=== PATIENT | female | born 1940 | race Caucasian/White ===

== ENCOUNTER 2017-05-04 15:55 | Observation (INO) | payer OTHER ==
[2017-05-04 16:04] VITALS: BMI 25.2
[2017-05-04 16:36] LABS: URINE APPEARANCE CLOUDY; URINE BILIRUBIN NEGATIVE (NEGATIVE); URINE BLOOD NEGATIVE (NEGATIVE); URINE COLOR AMBER; URINE GLUCOSE (UA) NEGATIVE (NEGATIVE); URINE KETONE TRACE (NEGATIVE); URINE NITRITE NEGATIVE (NEGATIVE); URINE UROBILINOGEN NEGATIVE E.U./dl (0.2-1.0)
[2017-05-04 16:37] LABS: URINE LEUK ESTERASE TRACE (NEGATIVE); URINE PROTEIN 2+ (NEGATIVE)
[2017-05-04 16:38] LABS: URINE BACTERIA RARE /hpf (NONE SEEN); URINE HYALINE CAST 11 /lpf; URINE MUCUS MANY; URINE RBC 5 /hpf (0-3); URINE WBC 15 /hpf (3-5)
[2017-05-04] MEDS ORDERED: ALBUTEROL SO4 2.5/IPRATROPIUM 0.5 INH SOL 3 ML VIAL.NEB. NEB ONE ×2 (17:48→18:38)
[2017-05-04] MEDS ORDERED: ACETAMINOPHEN 325 MG TABLET (FP) PO ONE (17:54)
[2017-05-04] MEDS ORDERED: SODIUM CHLORIDE 0.9% 1000 ML INFUS.BAG IV ONE (17:54)
[2017-05-04] MEDS ORDERED: ONDANSETRON 4 MG/2 ML VIAL IVPUSH ONE (17:55)
[2017-05-04 18:36] LABS: MCH 27.3 pg (25.7-33.7); MCHC 31.7 g/dl (32.0-36.0); MEAN CELL VOLUME 86.1 fl (80-96); MEAN PLT VOLUME 8.1 fl (7.5-11.1); PLATELET COUNT 275 K/MM3 (134-434); RDW 14.4 % (11.6-15.6); WHITE BLOOD COUNT 3.2 K/mm3 (4.0-10.0)
[2017-05-04] MEDS ORDERED: ACETAMINOPHEN 325 MG TABLET (FP) ONE (18:38)
[2017-05-04] MEDS ORDERED: ONDANSETRON 4 MG/2 ML VIAL ONE (18:39)
[2017-05-04 18:57] LABS: ALBUMIN 4.6 g/dl (3.4-5.0); BILIRUBIN,TOTAL 0.3 mg/dL (0.2-1.0); COCKROFT - GAULT 23.2475; CREATININE 1.9 mg/dL (0.55-1.02); TOT PROT 8.8 g/dl (6.4-8.2)
[2017-05-04 19:21] LABS: PLATELET ESTIMATE ADEQUATE (NORMAL)
[2017-05-04] MEDS ORDERED: LEVOFLOXACIN 500 MG IVPB 100 ML IVPB ONE ×2 (19:31→19:50)
--- NOTE | 2017-05-04 19:40 | PDOC ---
History of Present Illness - General History Source: Patient Exam Limitations: No Limitations - History of Present Illness Initial Comments: 05/04/17 19:40 The patient is a 76 year old female, with a significant past medical history of , who presents to the emergency department complaining of generalized weakness, nausea, vomiting, and diarrhea for approximately 4 days. The patient reports she experienced one emetic episode on Saturday, but has been experiencing approximately 2 episodes of diarrhea daily since the onset of her symptoms. Patient admits she has not been eating due to n/v/d. Today she has only consumed fluids. She reports a subjective fever and chills. She reports a cough productive of white and yellow sputum. Patient reports bilateral flank pain with coughing. She denies any dysuria, hematuria, frequency, or urgency. She denies any chest pain, shortness of breath, diaphoresis, or palpitations. She denies any recent travel or sick contacts. Allergies: Penicillins Past Surgical History: None reported Social History: Non smoker. No ETOH or drug use <Percy Barrow - Last Filed: 05/04/17 19:40> <Mojgan Almanzar - Last Filed: 05/04/17 20:27> - General Chief Complaint: Weakness Stated Complaint: FEVER, VOMITING Time Seen by Provider: 05/04/17 19:29 Past History <Percy Barrow - Last Filed: 05/04/17 19:40> - Past Medical History GI Disorders: Yes (GERD) Other medical history: arthritis - Surgical History Cholecystectomy: Yes - Psycho/Social/Smoking Cessation Hx Suicidal Ideation: No Smoking History: Never smoked <Mojgan Almanzar - Last Filed: 05/04/17 20:27> - Past Medical History Allergies/Adverse Reactions: Allergies Allergy/AdvReac Type Severity Reaction Status Date / Time Penicillins Allergy Verified 05/04/17 16:01 Home Medications: Ambulatory Orders Amlodipine Besylate [Norvasc -] 2.5 mg PO DAILY 05/04/17 Aspirin [ASA -] 81 mg PO DAILY 05/04/17 Cholecalciferol (Vitamin D3) [Vitamin D3 -] 1,000 unit PO DAILY 05/04/17 Pantoprazole Sodium [Protonix -] 20 mg PO DAILY 05/04/17 Valacyclovir HCl [Valtrex -] 1,000 mg PO BID 05/04/17 Review of Systems - Review of Systems Able to Perform ROS?: Yes Comments:: 05/04/17 19:41 GENERAL/CONSTITUTIONAL: Yes: +fever, +chills, +weakness. HEAD, EYES, EARS, NOSE AND THROAT: No change in vision. No ear pain or discharge. No sore throat. CARDIOVASCULAR: No chest pain or shortness of breath. RESPIRATORY: Yes: +cough productive of white/yellow sputum. No wheezing or hemoptysis. GASTROINTESTINAL: Yes: +nausea, vomiting, diarrhea. No constipation. GENITOURINARY: Yes: +bilateral flank pain. No dysuria, frequency, or change in urination. MUSCULOSKELETAL: Yes: +back pain. No joint or muscle swelling or pain. No neck pain. SKIN: No rash NEUROLOGIC: No headache, vertigo, loss of consciousness, or change in strength/ sensation. ENDOCRINE: Yes: Decreased appetite. No increased thirst. No abnormal weight change. HEMATOLOGIC/LYMPHATIC: No anemia, easy bleeding, or history of blood clots. ALLERGIC/IMMUNOLOGIC: No hives or skin allergy. All Other Systems: Reviewed and Negative <Percy Barrow - Last Filed: 05/04/17 19:40> *Physical Exam - Vital Signs Last Vital Signs Temp Pulse Resp BP Pulse Ox 98.1 F 85 18 131/64 100 05/04/17 16:01 05/04/17 16:01 05/04/17 16:01 05/04/17 16:01 05/04/17 16:01 - Physical Exam Comments: 05/04/17 19:41 GENERAL: Awake, alert, and fully oriented, in no acute distress HEAD: No signs of trauma EYES: PERRLA, EOMI, sclera anicteric, conjunctiva clear ENT: Auricles normal inspection, hearing grossly normal, nares patent. Moist mucosa NECK: Normal ROM, supple, no lymphadenopathy, JVD, or masses LUNGS: Breath sounds equal, clear to auscultation bilaterally. No wheezes, and no crackles HEART: Regular rate and rhythm, normal S1 and S2, no murmurs, rubs or gallops ABDOMEN: Soft, nontender, normoactive bowel sounds. No guarding, no rebound. No masses MUSCULOSKELETAL: Bilateral CVA tenderness. EXTREMITIES: Normal range of motion, no edema. No clubbing or cyanosis. No cords, erythema, or tenderness. DP/PT pulses 2+ and symmetric. NEUROLOGICAL: Moves all extremities. Normal speech, normal gait SKIN: Warm, Dry, normal turgor, no rashes or lesions noted. <Percy Barrow - Last Filed: 05/04/17 19:40> - Vital Signs Last Vital Signs Temp Pulse Resp BP Pulse Ox 98.1 F 85 18 131/64 100 05/04/17 16:01 05/04/17 16:01 05/04/17 16:01 05/04/17 16:01 05/04/17 16:01 <Mojgan Almanzar - Last Filed: 05/04/17 20:27> ED Treatment Course - LABORATORY CBC & Chemistry Diagram: 05/04/17 18:27 05/04/17 18:27 - ADDITIONAL ORDERS Additional order review: Laboratory Results 05/04/17 05/04/17 05/04/17 18:27 18:27 16:25 Sodium 137 Potassium 4.2 Chloride 103 Carbon Dioxide 22 Anion Gap 12 BUN 39 H Creatinine 1.9 H Creat Clearance w eGFR 25.84 Random Glucose 88 Lactic Acid 1.2 Calcium 10.0 Total Bilirubin 0.3 AST 51 H ALT 39 Alkaline Phosphatase 108 Total Protein 8.8 H Albumin 4.6 Urine Color Wendie Urine Appearance Cloudy Urine pH 5.0 Urine Protein 2+ H Urine Glucose (UA) Negative Urine Ketones Trace H Urine Blood Negative Urine Nitrite Negative Urine Bilirubin Negative Urine Urobilinogen Negative Ur Leukocyte Esterase Trace H Urine RBC 5 Urine WBC 15 Ur Epithelial Cells Rare Urine Bacteria Rare Hyaline Casts 11 Urine Mucus Many 05/04/17 18:27 RBC 5.19 MCV 86.1 MCHC 31.7 L RDW 14.4 MPV 8.1 Neutrophils % 34.0 L Lymphocytes % 41.0 H Monocytes % 22.0 H Eosinophils % 3.0 - Medications Given in the ED: ED Medications Discontinued Medications Generic Name Dose Route Start Last Admin Trade Name Freq PRN Reason Stop Dose Admin Acetaminophen 650 mg 05/04/17 17:54 05/04/17 18:46 Tylenol - PO 05/04/17 17:55 650 mg ONCE ONE Administration Albuterol/Ipratropium 1 amp 05/04/17 17:48 05/04/17 18:46 Duoneb - NEB 05/04/17 17:49 1 amp ONCE ONE Administration Ondansetron HCl 4 mg 05/04/17 17:55 05/04/17 18:46 Zofran Injection IVPUSH 05/04/17 17:56 4 mg ONCE ONE Administration Sodium Chloride 1,000 ml 05/04/17 17:54 05/04/17 18:25 Normal Saline - IV 05/04/17 17:55 1,000 ml ONCE ONE Administration <Percy Barrow - Last Filed: 05/04/17 19:40> - LABORATORY CBC & Chemistry Diagram: 05/04/17 18:27 05/04/17 18:27 - ADDITIONAL ORDERS Additional order review: Laboratory Results 05/04/17 05/04/17 05/04/17 18:27 18:27 16:25 Sodium 137 Potassium 4.2 Chloride 103 Carbon Dioxide 22 Anion Gap 12 BUN 39 H Creatinine 1.9 H Creat Clearance w eGFR 25.84 Random Glucose 88 Lactic Acid 1.2 Calcium 10.0 Total Bilirubin 0.3 AST 51 H ALT 39 Alkaline Phosphatase 108 Total Protein 8.8 H Albumin 4.6 Urine Color Wendie Urine Appearance Cloudy Urine pH 5.0 Urine Protein 2+ H Urine Glucose (UA) Negative Urine Ketones Trace H Urine Blood Negative Urine Nitrite Negative Urine Bilirubin Negative Urine Urobilinogen Negative Ur Leukocyte Esterase Trace H Urine RBC 5 Urine WBC 15 Ur Epithelial Cells Rare Urine Bacteria Rare Hyaline Casts 11 Urine Mucus Many 05/04/17 18:27 RBC 5.19 MCV 86.1 MCHC 31.7 L RDW 14.4 MPV 8.1 Neutrophils % 34.0 L Lymphocytes % 41.0 H Monocytes % 22.0 H Eosinophils % 3.0 - RADIOLOGY Radiology Studies Ordered: Category Date Time Status CHEST PA & LAT [RAD] Stat Radiology 05/04/17 17:48 Ordered - Medications Given in the ED: ED Medications Discontinued Medications Generic Name Dose Route Start Last Admin Trade Name Freq PRN Reason Stop Dose Admin Acetaminophen 650 mg 05/04/17 17:54 05/04/17 18:46 Tylenol - PO 05/04/17 17:55 650 mg ONCE ONE Administration Albuterol/Ipratropium 1 amp 05/04/17 17:48 05/04/17 18:46 Duoneb - NEB 05/04/17 17:49 1 amp ONCE ONE Administration Ondansetron HCl 4 mg 05/04/17 17:55 05/04/17 18:46 Zofran Injection IVPUSH 05/04/17 17:56 4 mg ONCE ONE Administration Sodium Chloride 1,000 ml 05/04/17 17:54 05/04/17 18:25 Normal Saline - IV 05/04/17 17:55 1,000 ml ONCE ONE Administration <Mojgan Almanzar - Last Filed: 05/04/17 20:27> Medical Decision Making - Medical Decision Making 05/04/17 19:37 76 yo F with h/o HTN here wtih c/o n/v cough and congestion. pt states cough and body aches began 5 days ago. did have n/v at that time. last emesis was few days ago. now having loose watery stools, subjective fever and chills. cough productive of white phlegm initially, now yellow. also c/o bilat flank pain. no recent travel. no sick contacts. no mod factors. on exam awwake, alert, lungs clear bilaterally, decr at bases. heart RRR no mr/ g. abd soft NT bilat CVA ttp. ext wwp skin warm and dry. plan : differential pna, bronchitis, flu, dehydration plan labs duoneb, cxr ua cultures. flu swab. reassess. pt pcp not affiliate. <Mojgan Almanzar - Last Filed: 05/04/17 20:27> *DC/Admit/Observation/Transfer - Attestations Scribe Attestion: 05/04/17 19:41 Documentation prepared by Percy Barrow, acting as medical review specialist for Mojgan Almanzar MD <Percy Barrow - Last Filed: 05/04/17 19:40> - Discharge Dispostion Admit: Yes <Mojgan Almanzar - Last Filed: 05/04/17 20:27> Diagnosis at time of Disposition: Urinary tract infection, Bronchitis - Referrals Referrals: STAFF,NOT ON [Primary Care Provider] -
--- NOTE | 2017-05-04 20:34 | PN ---
<Chaz Reyes - Last Filed: 05/04/17 20:34> Teaching Attending Note Name of Resident: Donya Garcia ATTENDING PHYSICIAN STATEMENT I saw and evaluated the patient. I reviewed the resident's note and discussed the case with the resident. I agree with the resident's findings and plan as documented. SUBJECTIVE: OBJECTIVE: ASSESSMENT AND PLAN: <Martin Roberto - Last Filed: 05/04/17 22:27> Teaching Attending Note ATTENDING PHYSICIAN STATEMENT I saw and evaluated the patient. I reviewed the resident's note and discussed the case with the resident. I agree with the resident's findings and plan as documented. SUBJECTIVE: 76 year old female, with a significant past medical history of Hypertension, GERD, arthritis and renal stones, with a surgical history of cholecystectomy and , who presents to the ED with generalized weakness, nausea, vomiting, diarrhea, urinary frequency, fever, chills, bilateral flank pain and cough for the past 4 days. She describes her cough as productive of a white/ yellow sputum. She notes that her cough does cause her to have some mild shortness of breath. She also notes that she has been having nasal congestion associated. She reports that she had 1 episode of vomit and 8 episodes of diarrhea during this time frame. She denies any rectal bleeding. She notes that her fever is subjective in nature. She denies any sick contacts or recent travel. She denies any history of incontinence or UTIs. She denies dysuria, urgency or hematuria. She denies chest pain, headache or dizziness. OBJECTIVE: GENERAL: Awake, alert, and fully oriented, in no acute distress HEENT: Atraumatic. PERRLA, EOMI. No JVD. (+) Oral thrush. No sinus pain. LUNGS: No distress, speaks full sentences, clear to auscultation bilaterally HEART: Regular rate and rhythm, normal S1 and S2, no murmurs, rubs or gallops, peripheral pulses normal and equal bilaterally. ABDOMEN: Soft, nontender, normoactive bowel sounds. No guarding, no rebound. No masses. No CVA tenderness. EXTREMITIES: Normal inspection, Normal range of motion, no edema. No clubbing or cyanosis. NEUROLOGICAL: Cranial nerves II through XII grossly intact. Normal speech, no focal sensorimotor deficits SKIN: Warm, Dry, normal turgor, no rashes or lesions noted. CBCD WBC 3.2 K/mm3 (4.0-10.0) L 05/04/17 18: RBC 5.19 M/mm3 (3.60-5.2) 05/04/17 18:27 Hgb 14.1 GM/dL (10.7-15.3) 05/04/17 18:27 Hct 44.7 % (32.4-45.2) 05/04/17 18: MCV 86.1 fl (80-96) 05/04/17 18: MCHC 31.7 g/dl (32.0-36.0) L 05/04/17 18: RDW 14.4 % (11.6-15.6) 05/04/17 18: Plt Count 275 K/MM3 (134-434) 05/04/17 18: MPV 8.1 fl (7.5-11.1) 05/04/17 18:27 CMP Sodium 137 mmol/L (136-145) 05/04/17 18:27 Potassium 4.2 mmol/L (3.5-5.1) 05/04/17 18: Chloride 103 mmol/L (98-107) 05/04/17 18: Carbon Dioxide 22 mmol/L (21-32) 05/04/17 18:27 Anion Gap 12 (8-16) 05/04/17 18:27 BUN 39 mg/dL (7-18) H 05/04/17 18:27 Creatinine 1.9 mg/dL (0.55-1.02) H 05/04/17 18:27 Creat Clearance w eGFR 25.84 (>60) 05/04/17 18:27 Calcium 10.0 mg/dL (8.5-10.1) 05/04/17 18:27 Total Bilirubin 0.3 mg/dL (0.2-1.0) 05/04/17 18:27 AST 51 U/L (15-37) H 05/04/17 18:27 ALT 39 U/L (12-78) 05/04/17 18:27 Alkaline Phosphatase 108 U/L (45-117) 05/04/17 18:27 Total Protein 8.8 g/dl (6.4-8.2) H 05/04/17 18:27 Albumin 4.6 g/dl (3.4-5.0) 05/04/17 18:27 ASSESSMENT AND PLAN 1. Likely viral URI causing cough, nasal congestion, diarrhea, nausea and vomiting. No evidence of pneumonia on chest x-ray. - Flu swab. - Cough syrup PRN. - Tylenol PRN if fevers. - Zofran PRN if nausea or vomiting. - No antibiotics at this time. 2. Mild dehydration, secondary to vomiting and diarrhea. - IVF hydration. 3. KARI vs CKD, no baseline kidney function test available. - Urine creatine - Renal sonogram - Avoid nephrotoxic medications. - Trend kidney function tests. - Is and Os and daily weights. 4. Oral thrush and leukopenia - Rule out HIV. - Nystantin swish and spit. 5. Diet - Normal diet 6. DVT prophylaxes - Low risk - SCDs Documentation prepared by Martin Roberto, acting as medical review coordinator for Chaz Reyes MD.
[2017-05-04] MEDS ORDERED: ONDANSETRON 4 MG/2 ML VIAL IVPB PRN (20:51)
[2017-05-04] MEDS ORDERED: ACETAMINOPHEN 325 MG TABLET (FP) PO PRN (20:51)
[2017-05-04] MEDS ORDERED: ALBUTEROL SO4 0.083% IH SOL 2.5 MG/3 ML VIAL.NEB. NEB PRN (20:51)
[2017-05-04] MEDS ORDERED: SODIUM CHLORIDE 1,000 ML IV SCH (21:00)
--- NOTE | 2017-05-04 22:04 | HP ---
CHIEF COMPLAINT: cough, n,v,d PCP: HISTORY OF PRESENT ILLNESS: 76 year old female with a past medical history of hypertension, arthritis, GERD , presents to the emergency room for cough, sob, nausea, fever, vomiting and diarrhea, and decreased urinary frequency x4 days. She claims symptoms began with a cough with thick white/yellow sputum production, then decreased appetite. She has not been able to eat or drink anything since Saturday. Last meal was Saturday, one spoon full of mashed potatoes. She denies recent weight loss. Patient states these symptoms were accompanied by fever (temp not taken ) and chills. She also had one episode on non bilious, non bloody vomiting, and 8 episodes of yellow diarrhea. These symptoms prompted her to come to the ER, brought in by her daughter. She denies sick contact, recent travel. Patient denies MONTALVO, sore throat, night sweats, chest pain, palpitations Patient denies urinary incontinence, dysuria, hematuria, melena, BBB ER course was notable for leukopenia, afebrile, Elevated BUN/Cr. CXR no evidence of pna, severe kyphosis. Patient was given one time levaquin and albuterol. Recent Travel: no PAST MEDICAL HISTORY: hypertension, GERD, arthritis, hx of kidney stone left sided > 20 yrs ago PAST SURGICAL HISTORY: cholecystectomy, c section Social History: Smoking:no Alcohol:no Drugs:no Family History: Allergies Penicillins Allergy (Verified 05/04/17 16:01) HOME MEDICATIONS: Home Medications Medication Instructions Recorded Amlodipine Besylate [Norvasc -] 2.5 mg PO DAILY 05/04/17 Aspirin [ASA -] 81 mg PO DAILY 05/04/17 Cholecalciferol (Vitamin D3) 1,000 unit PO DAILY 05/04/17 [Vitamin D3 -] Pantoprazole Sodium [Protonix -] 20 mg PO DAILY 05/04/17 Valacyclovir HCl [Valtrex -] 1,000 mg PO BID 05/04/17 REVIEW OF SYSTEMS CONSTITUTIONAL: Positive: fever, chills, diaphoresis, generalized weakness, malaise, loss of appetite, Absent: weight changes HEENT: Positive: nasal congestion Absent: rhinorrhea, throat pain, throat swelling, difficulty swallowing, mouth swelling, ear pain, eye pain, visual changes CARDIOVASCULAR: Absent: chest pain, syncope, palpitations, irregular heart rate, lightheadedness , peripheral edema RESPIRATORY: Positive: cough, shortness of breath, Absent: dyspnea with exertion, orthopnea, wheezing, stridor, hemoptysis GASTROINTESTINAL: Positive: nausea, vomiting, diarrhea, Absent: abdominal pain, abdominal distension,constipation, melena, hematochezia GENITOURINARY: Positive: Absent: dysuria, frequency, urgency, hesitancy, hematuria, flank pain, genital pain MUSCULOSKELETAL: Absent: myalgia, arthralgia, joint swelling, back pain, neck pain SKIN: Absent: rash, itching, pallor HEMATOLOGIC/IMMUNOLOGIC: Absent: easy bleeding, easy bruising, lymphadenopathy, frequent infections ENDOCRINE: Absent: unexplained weight gain, unexplained weight loss, heat intolerance, cold intolerance NEUROLOGIC: Absent: headache, focal weakness or paresthesias, dizziness, unsteady gait, seizure, mental status changes, bladder or bowel incontinence PSYCHIATRIC: Absent: anxiety, depression, suicidal or homicidal ideation, hallucinations. PHYSICAL EXAMINATION GENERAL: Awake, alert, and fully oriented, in no acute distress. HEAD: Normal with no signs of trauma. EYES: Pupils equal, round and reactive to light, extraocular movements intact, sclera anicteric, conjunctiva clear. No lid lag. EARS, NOSE, THROAT: Ears normal, nares patent, oropharynx clear without exudates. drymucous membranes. oral thrush NECK: Normal range of motion, supple without lymphadenopathy, JVD, or masses. LUNGS: Breath sounds equal, clear to auscultation bilaterally. No wheezes, and mild bibasilar crackles. No accessory muscle use. HEART: Regular rate and rhythm, normal S1 and S2 without murmur, rub or gallop. ABDOMEN: Soft, nontender, not distended, normoactive bowel sounds, no guarding, no rebound, no masses. No hepatomegaly or splenomegaly. MUSCULOSKELETAL: Normal range of motion at all joints. No bony deformities or tenderness. No CVA tenderness. UPPER EXTREMITIES: 2+ pulses, warm, well-perfused. No cyanosis. No clubbing. No peripheral edema. LOWER EXTREMITIES: 2+ pulses, warm, well-perfused. No calf tenderness. No peripheral edema. NEUROLOGICAL: Cranial nerves II-XII intact. Normal speech. PSYCHIATRIC: Cooperative. Good eye contact. Appropriate mood and affect. SKIN: Warm, dry, normal turgor, no rashes or lesions noted, normal capillary refill. ASSESSMENT/PLAN: 76 year old female with past medical history of hypertension presents to the emergency room with upper respiratory symptoms accompanied with nausea, vomiting , poor oral intake, decreased urinary output. Most likely related to upper respiratory symptoms, will hydrate and reeval. Observe off antibiotics. #Cough/congestion most likely secondary to upper respiratory infection: -1x levaquin given in er along with albuterol tx -flu swab -f/u blood cultures -cxr negative for pneumonia -guaifenesin 10ml q6h prn -monitor off antibiotics #nausea/vomiting diarrhea; resolved -may be secondary to acute viral gastroenteritis or from URI -zofran 4mg q4hrs prn #acute kidney injury: r/o chronic kidney injury; secondary to prerenal cause/ volume contraction -urine electrolytes, urine creatinine; calculate FeNa -renal/bladder US -avoid nephrotoxic agents -IVF 100mls NS -trend BUN/Cr -I/O/ daily wts #oral thrush/leukopenia, r/o HIV -hiv rapid -nystatin swish/swallow q6h FEN: -NS 100mls/hr -regular diet -monitor electrolytes VTE prophylaxis: scds Disposition: observation, reveal in am after fluid challenge Problem List - Problem (1) KARI (acute kidney injury) Code(s): N17.9 - ACUTE KIDNEY FAILURE, UNSPECIFIED (2) URI (upper respiratory infection) Code(s): J06.9 - ACUTE UPPER RESPIRATORY INFECTION, UNSPECIFIED (3) Oral thrush Code(s): B37.0 - CANDIDAL STOMATITIS Visit type - Emergency Visit Emergency Visit: Yes ED Registration Date: 05/04/17 Care time: The patient presented to the Emergency Department on the above date and was hospitalized for further evaluation of their emergent condition. - New Patient This patient is new to me today: Yes Date on this admission: 05/05/17 - Critical Care Critical Care patient: No
[2017-05-05] MEDS: NYSTATIN 500,000 UNITS/5 ML SUSPENSION PO SCH ×5 (00:27→23:30)
[2017-05-05] MEDS ORDERED: guaiFENesin/D-METHORPHAN HB 10 ML UNIT-DOSE CUPS PO PRN (01:09)
[2017-05-05 07:32] LABS: BASOPHIL 0.5 % (0-2.0); EOSINOPHIL 1.8 % (0-4.5); MCH 28.2 pg (25.7-33.7); MCHC 32.7 g/dl (32.0-36.0); NEUTROPHILS 39.3 % (42.8-82.8); PLATELET COUNT 231 K/MM3 (134-434); RDW 14.3 % (11.6-15.6); WHITE BLOOD COUNT 2.6 K/mm3 (4.0-10.0)
[2017-05-05 08:19] LABS: ALBUMIN 3.4 g/dl (3.4-5.0); CALCIUM 8.4 mg/dL (8.5-10.1); COCKROFT - GAULT 36.8135; CREATININE 1.2 mg/dL (0.55-1.02); MAGNESIUM 1.9 mg/dL (1.8-2.4); PHOSPHOROUS 3.1 mg/dL (2.5-4.9)
[2017-05-05 08:21] LABS: BILIRUBIN,TOTAL 0.6 mg/dL (0.2-1.0); TOT PROT 6.7 g/dl (6.4-8.2)
[2017-05-05] MEDS: PANTOPRAZOLE 20 MG TABLET (FP) PO SCH ×2 (08:53→10:07)
[2017-05-05] MEDS ORDERED: valACYclovir HCL 1000 MG TABLET PO SCH (10:00)
[2017-05-05] MEDS: CHOLECALCIFEROL (VITAMIN D3) 1,000 UNIT TABLET (FP) PO SCH (10:12)
[2017-05-05] MEDS: amLODIPine BESYLATE 2.5 MG TABLET (FP) PO SCH (10:12)
[2017-05-05] MEDS: ASPIRIN 81 MG CHEWABLE TABLETS PO SCH (10:12)
--- NOTE | 2017-05-05 10:12 | PN ---
Physical Exam: SUBJECTIVE: Patient seen and examined. She complains of epigastric pain and nausea. OBJECTIVE: Vital Signs Period Temp Pulse Resp BP Sys/Degroot Pulse Ox Last 24 Hr 98.2 F-99.0 F 82-92 16-20 105-132/59-62 97-100 GENERAL: The patient is awake, alert, and fully oriented, in no acute distress. LUNGS: Breath sounds equal, clear to auscultation bilaterally, no wheezes, no crackles, no accessory muscle use. HEART: Regular rate and rhythm, S1, S2 without murmur, rub or gallop. ABDOMEN: Soft, (+) epigastric tenderness, nondistended, normoactive bowel sounds , no guarding, no rebound, no hepatosplenomegaly, no masses. EXTREMITIES: 2+ pulses, warm, well-perfused, no edema. Laboratory Results - last 24 hr 05/05/17 05/05/17 06:10 06:10 WBC 2.6 L RBC 4.21 Hgb 11.9 D Hct 36.2 D MCV 86.0 MCHC 32.7 RDW 14.3 Plt Count 231 MPV 8.0 Neutrophils % 39.3 L Lymphocytes % 37.7 Monocytes % 20.7 H Eosinophils % 1.8 Basophils % 0.5 Sodium 139 Potassium 3.7 Chloride 109 H Carbon Dioxide 22 Anion Gap 8 BUN 29 H D Creatinine 1.2 H D Creat Clearance w eGFR 43.91 Random Glucose 79 Calcium 8.4 L Phosphorus 3.1 Magnesium 1.9 Total Bilirubin 0.6 D AST 35 D ALT 28 D Alkaline Phosphatase 83 D Total Protein 6.7 D Albumin 3.4 D Active Medications Generic Name Dose Route Start Last Admin Trade Name Freq PRN Reason Stop Dose Admin Acetaminophen 650 mg 05/04/17 20:51 Tylenol - PO Q4H PRN FEVER OR PAIN Albuterol Sulfate 1 amp 05/04/17 20:51 Ventolin 0.083% Nebulizer Soln - NEB Q4H PRN SHORT OF BREATH/WHEEZING Amlodipine Besylate 2.5 mg 05/05/17 10:00 Norvasc - PO DAILY BETTE Aspirin 81 mg 05/05/17 10:00 Asa - PO DAILY BETTE Cholecalciferol 1,000 unit 05/05/17 10:00 Vitamin D3 - PO DAILY BETTE Guaifenesin 10 ml 05/05/17 01:09 Robitussin Dm - PO Q6H PRN COUGH Sodium Chloride 1,000 mls @ 100 mls/hr 05/04/17 21:00 05/04/17 21:55 Normal Saline - IV 100 mls/hr ASDIR BETTE Administration Nystatin 500,000 units 05/05/17 00:00 05/05/17 06:21 Nystatin Oral Suspension - PO 500,000 units Q6HPO BETTE Administration Ondansetron HCl 4 mg 05/04/17 20:51 Zofran Injection IVPB Q6H PRN NAUSEA Pantoprazole Sodium 20 mg 05/05/17 10:00 05/05/17 10:07 Protonix - PO Not Given DAILY BETTE Valacyclovir HCl 1,000 mg 05/05/17 10:00 Valtrex - PO BID BETTE ASSESSMENT/PLAN: This is a 76 year old woman with a history of HTN, GERD, OA who presented to the ER with URI symptoms, nausea, vomiting, poor oral intake, decreased urinary output. 1. Acute kidney injury secondary to dehydration - Improving with IV fluid 2. Nausea, vomiting, diarrhea - Continue IV fluid, Zofran as needed for nausea 3. URI - Continue Robitussin DM as needed for cough, congestion - Levaquin given in ER - no indication for antibiotics at this time 4. Oral candidiasis with leukopenia - ANC is 1021 - HIV 1/2 Ab and P24 Ag negative - Continue oral Nystatin 5. HTN - Continue Norvasc 6. GERD - Continue Protonix Visit type - Emergency Visit Emergency Visit: Yes ED Registration Date: 05/04/17 Care time: The patient presented to the Emergency Department on the above date and was hospitalized for further evaluation of their emergent condition. - New Patient This patient is new to me today: Yes Date on this admission: 05/05/17 - Critical Care Critical Care patient: No - Discharge Referral Referred to [facility] Med P.C.: No
[2017-05-05 10:21] LABS: HIV 1 & 2 AB NEGATIVE; HIV 1 AGp24 NEGATIVE
--- NOTE | 2017-05-05 15:34 | EKG ---
Test Reason : Blood Pressure : / mmHG Vent. Rate : 091 BPM Atrial Rate : 091 BPM P-R Int : 148 ms QRS Dur : 076 ms QT Int : 356 ms P-R-T Axes : 047 006 022 degrees QTc Int : 437 ms NORMAL SINUS RHYTHM POSSIBLE LEFT ATRIAL ENLARGEMENT BORDERLINE ECG NO PREVIOUS ECGS AVAILABLE BASELINE ARTIFACT Confirmed by DOMENIC BARROS, DOMI ([id number] on 05/05/2017 3:34:12 PM Referred By: Confirmed By:DOMI SHETH MD
[2017-05-05] MEDS: SODIUM CHLORIDE 1,000 ML IV SCH (17:32)
[2017-05-06] MEDS: SODIUM CHLORIDE 1,000 ML IV SCH (04:17)
[2017-05-06] MEDS: NYSTATIN 500,000 UNITS/5 ML SUSPENSION PO SCH ×2 (05:52→14:14)
[2017-05-06 07:51] LABS: BASOPHIL 0.8 % (0-2.0); EOSINOPHIL 3.3 % (0-4.5); MCH 28.1 pg (25.7-33.7); MCHC 32.5 g/dl (32.0-36.0); MEAN CELL VOLUME 86.4 fl (80-96); MEAN PLT VOLUME 8.2 fl (7.5-11.1); NEUTROPHILS 29.6 % (42.8-82.8); PLATELET COUNT 214 K/MM3 (134-434); WHITE BLOOD COUNT 3.3 K/mm3 (4.0-10.0)
[2017-05-06 07:54] LABS: CALCIUM 8.8 mg/dL (8.5-10.1); COCKROFT - GAULT 55.216; CREATININE 0.8 mg/dL (0.55-1.02)
--- NOTE | 2017-05-06 09:29 | PN ---
Teaching Attending Note Name of Resident: Philippe Mccray ATTENDING PHYSICIAN STATEMENT I saw and evaluated the patient. I reviewed the resident's note and discussed the case with the resident. I agree with the resident's findings and plan as documented. SUBJECTIVE: Patient has no complaints. OBJECTIVE: Vital Signs Period Temp Pulse Resp BP Sys/Degroot Pulse Ox Last 24 Hr 98.2 F-99.2 F 70-80 18-20 115-133/60-69 98-98 HEART: S1S2, RRR LUNGS: Clear ABDOMEN: soft, non-tender, non-distended, normal BS EXTREMITIES: No edema ASSESSMENT AND PLAN: This is a 76 year old woman with a history of HTN, GERD, OA who presented to the ER with URI symptoms, nausea, vomiting, poor oral intake, decreased urinary output. 1. Acute kidney injury secondary to dehydration - Resolved 2. Nausea, vomiting, diarrhea - Improved 3. URI - Continue Robitussin DM as needed for cough, congestion - Levaquin given in ER - no indication for antibiotics at this time 4. Oral candidiasis with leukopenia - HIV 1/2 Ab and P24 Ag negative - Continue oral Nystatin - Outpatient follow-up with hematology 5. HTN - Continue Norvasc 6. GERD - Continue Protonix 7. Disposition - Ok for discharge home with follow up with PCP and ? hematology
[2017-05-06] MEDS: CHOLECALCIFEROL (VITAMIN D3) 1,000 UNIT TABLET (FP) PO SCH (09:51)
[2017-05-06] MEDS: amLODIPine BESYLATE 2.5 MG TABLET (FP) PO SCH (09:52)
[2017-05-06] MEDS: ASPIRIN 81 MG CHEWABLE TABLETS PO SCH (09:52)
[2017-05-06] MEDS: PANTOPRAZOLE 20 MG TABLET (FP) PO SCH (09:52)
[2017-05-06 14:41] VITALS: BP 115/72; PULSE 77; TEMP 98.5
--- NOTE | 2017-05-06 22:34 | DS ---
Physical Exam: SUBJECTIVE: Patient has no complaint. OBJECTIVE: Vital Signs Period Temp Pulse Resp BP Sys/Degroot Pulse Ox Last 24 Hr 98.5 F-99.2 F 69-78 18-18 113-133/68-72 98-98 PHYSICAL EXAM GENERAL: Awake, alert, and fully oriented, in no acute distress. HEAD: Normal with no signs of trauma. EYES: Pupils equal, round and reactive to light, extraocular movements intact, sclera anicteric, conjunctiva clear. No lid lag. EARS, NOSE, THROAT: Ears normal, nares patent, oropharynx clear without exudates. drymucous membranes. oral thrush NECK: Normal range of motion, supple without lymphadenopathy, JVD, or masses. LUNGS: Breath sounds equal, clear to auscultation bilaterally. No wheezes, and mild bibasilar crackles. No accessory muscle use. HEART: Regular rate and rhythm, normal S1 and S2 without murmur, rub or gallop. ABDOMEN: Soft, nontender, not distended, normoactive bowel sounds, no guarding, no rebound, no masses. No hepatomegaly or splenomegaly. MUSCULOSKELETAL: Normal range of motion at all joints. No bony deformities or tenderness. No CVA tenderness. UPPER EXTREMITIES: 2+ pulses, warm, well-perfused. No cyanosis. No clubbing. No peripheral edema. LOWER EXTREMITIES: 2+ pulses, warm, well-perfused. No calf tenderness. No peripheral edema. NEUROLOGICAL: Cranial nerves II-XII intact. Normal speech. PSYCHIATRIC: Cooperative. Good eye contact. Appropriate mood and affect. SKIN: Warm, dry, normal turgor, no rashes or lesions noted, normal capillary refill. LABS Laboratory Results - last 24 hr 05/05/17 05/05/17 05/06/17 23:30 23:30 06:00 WBC 3.3 L RBC 3.98 Hgb 11.2 Hct 34.4 MCV 86.4 MCHC 32.5 RDW 14.0 Plt Count 214 MPV 8.2 Neutrophils % 29.6 L D Lymphocytes % 51.2 H D Monocytes % 15.1 H Eosinophils % 3.3 D Basophils % 0.8 Sodium Potassium Chloride Carbon Dioxide Anion Gap BUN Creatinine Random Glucose Calcium Ur Random Sodium 139 Ur Random Potassium 16.0 Ur Random Chloride 168 Urine Creatinine 45.4 05/06/17 06:00 WBC RBC Hgb Hct MCV MCHC RDW Plt Count MPV Neutrophils % Lymphocytes % Monocytes % Eosinophils % Basophils % Sodium 142 Potassium 4.4 Chloride 110 H Carbon Dioxide 21 Anion Gap 11 BUN 16 D Creatinine 0.8 D Random Glucose 86 Calcium 8.8 Ur Random Sodium Ur Random Potassium Ur Random Chloride Urine Creatinine HOSPITAL COURSE: Date of Admission:05/04/17 76 year old female with past medical history of hypertension presents to the emergency room with upper respiratory symptoms accompanied with nausea, vomiting , poor oral intake, decreased urinary output. She's likely had upper respiratory infection with cold like symptoms. Patient was found to have acute kidney injury secondary to dehydration which has resolved with IV fluid. Her Nausea, vomiting, diarrhea have also resolved. She also has oral candidiasis with leukopenia with ANC of 1021. She's treated with nystatin oral solution. Her primary physician was not reachable on discharge. Her daughter was contacted and she's instructed to bring the patient to her primary physician for further evaluation of her leukopenia. Robitussin, zofran and nystatin oral solution were sent to her phamarcy of choice. Date of Discharge: 05/06/17 Minutes to complete discharge: 35 Discharge Summary Reason For Visit: UTI/SEPSIS Condition: Stable - Instructions Diet, Activity, Other Instructions: Instruction for continuing care: You were admitted to the hospital for nausea, vomiting, diarrhea and cough. Your kidney also sustained mild injury from dehydration. You were also found to have low white blood cell count and fungal infection in your mouth. You were treated accordingly and now in stable condition to go home. You must do the followings after you get home 1. make an appointment to see your primary doctor within a week 2. cont. to take nystatin oral solution every 6 hours for another week 3. take zofran 8mg pill as needed for nausea and vomiting 4. continue to take robitussin DM as needed for cough Referrals: STAFF,NOT ON [Primary Care Provider] - Disposition: HOME - Home Medications Comprehensive Discharge Medication List: Ambulatory Orders Amlodipine Besylate [Norvasc -] 2.5 mg PO DAILY 05/04/17 Aspirin [ASA -] 81 mg PO DAILY 05/04/17 Cholecalciferol (Vitamin D3) [Vitamin D3 -] 1,000 unit PO DAILY 05/04/17 Pantoprazole Sodium [Protonix -] 20 mg PO DAILY 05/04/17 Valacyclovir HCl [Valtrex -] 1,000 mg PO BID PRN 05/04/17 Guaifenesin Dm [Robitussin Dm -] 10 ml PO Q6H PRN #7 cup 05/06/17 Nystatin Oral Suspension - [Nystatin Oral Susp 492226 Units/5 ML -] 500,000 units PO Q6H #28 cup 05/06/17 Ondansetron [Zofran -] 8 mg PO TID PRN #14 tablet 05/06/17 This patient is new to me today: Yes Date on this admission: 05/06/17 Emergency Visit: Yes ED Registration Date: 05/04/17 Care time: The patient presented to the Emergency Department on the above date and was hospitalized for further evaluation of their emergent condition. Critical Care patient: No - Discharge Referral Referred to [facility] Med P.C.: No
== END 2017-05-06 15:08 | disposition home or self-care (01) ==
LOC: JER 15:55 → JERBED 20:27 → J8W 05-05 00:09
PROVIDERS: ADMIT Internal Medicine; ATTEND Internal Medicine
PROC: 3E03329 Introduction of Other Anti-infective into Peripheral Vein, Percutaneous Approach (ICD-10-PCS; principal; 2017-05-04)
PROC: 3E033GC Introduction of Other Therapeutic Substance into Peripheral Vein, Percutaneous Approach (ICD-10-PCS; 2017-05-04)
PROC: 3E0337Z Introduction of Electrolytic and Water Balance Substance into Peripheral Vein, Percutaneous Approach (ICD-10-PCS; 2017-05-04)
PROC: 3E0F7GC Introduction of Other Therapeutic Substance into Respiratory Tract, Via Natural or Artificial Opening (ICD-10-PCS; 2017-05-04)
DX: A41.9 Sepsis, unspecified organism (principal); J06.9 Acute upper respiratory infection, unspecified; J40 Bronchitis, not specified as acute or chronic; K21.9 Gastro-esophageal reflux disease without esophagitis; M19.90 Unspecified osteoarthritis, unspecified site; Z79.82 Long term (current) use of aspirin; E86.0 Dehydration; B37.0 Candidal stomatitis; D72.819 Decreased white blood cell count, unspecified; I10 Essential (primary) hypertension; Z87.442 Personal history of urinary calculi; Z90.49 Acquired absence of other specified parts of digestive tract; N17.9 Acute kidney failure, unspecified
CPT/HCPCS: 36415; 71020-TC; 76775-TC; 76856-TC; 80048; 80053; 81003; 81015; 82436; 82570; 83605; 83735; 84100; 84133; 84300; 85025; 87040; 87081; 87086; 87254; 87389; 87804; 93005; 93010; 99285-25; G0378